=== PATIENT | male | born 2000 | race Caucasian/White ===

== ENCOUNTER 2025-01-07 18:37 | Emergency (ER) | payer SELFPAY ==
[2025-01-07] MEDS: Ketorolac 30 MG/ML SDV IVPUSH ONE (20:34)
[2025-01-07] MEDS: Sodium Chloride 0.9% 1,000 ML IV ONE (20:34)
[2025-01-07] MEDS: diphenhydrAMINE 50 MG/ML SDV IVPUSH ONE (20:36)
[2025-01-07] MEDS: Ondansetron 4 MG/2 ML SDV IVPUSH ONE (20:37)
[2025-01-07] MEDS: Ondansetron 4 MG Tab PO ONE (20:49)
[2025-01-07] MEDS: diphenhydrAMINE 50 MG Cap PO ONE (20:49)
[2025-01-07 20:51] LABS: BASOPHILS ABSOLUTE AUTO 0.08 K/uL (0.00-0.20); BASOPHILS PERCENT AUTO 0.7 % (0.0-1.0); EOSINOPHILS ABSOLUTE AUTO 0.27 K/uL (0.00-0.45); EOSINOPHILS PERCENT AUTO 2.2 % (0.0-6.0); HEMATOCRIT 47.9 % (42.0-52.0); HEMOGLOBIN 16.9 g/dL (14.0-18.0); IMMATURE GRAN ABSOLUTE AUTO 0.06 K/uL (0.00-0.05); IMMATURE GRAN PERCENT AUTO 0.5 % (0.0-0.4); LYMPHOCYTES ABSOLUTE AUTO 3.45 K/uL (1.00-4.80); LYMPHOCYTES PERCENT AUTO 28.2 % (24.0-44.0); MEAN CORPUSCULAR HEMOGLOBIN 29.3 pg (28.0-32.0); MEAN CORPUSCULAR HGB CONC 35.3 g/dL (32.0-36.0); MEAN CORPUSCULAR VOLUME 83.2 fL (83.0-99.0); MEAN PLATELET VOLUME 8.9 fL (9.4-12.4); MONOCYTES ABSOLUTE AUTO 0.69 K/uL (0.00-0.80); MONOCYTES PERCENT AUTO 5.6 % (0.0-8.0); NEUTROPHILS ABSOLUTE AUTO 7.69 K/uL (1.80-7.70); NEUTROPHILS PERCENT AUTO 62.8 % (41.0-71.0); PLATELET COUNT,PLT 307 K/uL (150-400); RED BLOOD CELL COUNT 5.76 M/uL (4.52-5.90); WHITE BLOOD CELL COUNT,WBC 12.24 K/uL (3.9-11.3)
[2025-01-07 21:17] LABS: BLOOD UREA NITROGEN,BUN 13 mg/dL (7.0-18.0); CALCIUM 8.8 mg/dL (8.5-10.1); CARBON DIOXIDE,CO2 30.2 mmol/L (21.0-32.0); CHLORIDE,CL 101 mmol/L (98-107); CREATININE 1.2 mg/dL (0.8-1.3); GLUCOSE RANDOM 84 mg/dL (74-106); POTASSIUM,K 3.9 mmol/L (3.5-5.1); SODIUM,NA 138 mmol/L (136-148)
[2025-01-07 21:24] LABS: ESTIMATED GFR 86 mL/min (>60)
[2025-01-07 21:28] LABS: CORONAVIRUS COVID-19 NAA NEGATIVE (NEGATIVE); INFLUENZA A NAA NEGATIVE (NEGATIVE); INFLUENZA B NAA NEGATIVE (NEGATIVE)
== END 2025-01-07 23:32 | disposition home or self-care (01) ==
LOC: MW.ED 18:37
DX: G44.209 Tension-type headache, unspecified, not intractable (principal); R00.2 Palpitations
CPT/HCPCS: 0240U; 36415; 80048; 84484; 85025; 93005; 96361; 96374; 96375; 99285; J1200; J1885; J2405; J7030; 99283

== ENCOUNTER 2025-02-22 14:49 | Emergency (ER) | payer BC ==
[2025-02-22 15:06] LABS: BASOPHILS ABSOLUTE AUTO 0.11 K/uL (0.00-0.20); BASOPHILS PERCENT AUTO 0.8 % (0.0-1.0); EOSINOPHILS ABSOLUTE AUTO 0.12 K/uL (0.00-0.45); EOSINOPHILS PERCENT AUTO 0.8 % (0.0-6.0); IMMATURE GRAN ABSOLUTE AUTO 0.10 K/uL (0.00-0.05); IMMATURE GRAN PERCENT AUTO 0.7 % (0.0-0.4); LYMPHOCYTES ABSOLUTE AUTO 2.94 K/uL (1.00-4.80); LYMPHOCYTES PERCENT AUTO 20.6 % (24.0-44.0); MEAN PLATELET VOLUME 8.6 fL (9.4-12.4); MONOCYTES ABSOLUTE AUTO 0.88 K/uL (0.00-0.80); MONOCYTES PERCENT AUTO 6.2 % (0.0-8.0); NEUTROPHILS ABSOLUTE AUTO 10.15 K/uL (1.80-7.70); NEUTROPHILS PERCENT AUTO 70.9 % (41.0-71.0); NRBC ABSOLUTE 0.00 K/uL (0.00-0.02); NRBC PERCENT 0.0 /100WBC (0.0-0.2); PLATELET COUNT,PLT 328 K/uL (150-400); RED BLOOD CELL COUNT 5.92 M/uL (4.52-5.90); WHITE BLOOD CELL COUNT,WBC 14.30 K/uL (3.9-11.3)
[2025-02-22 15:52] LABS: A/G RATIO 1.4 (0.9-1.6); ALANINE AMINOTRANSFERASE,ALT 39.0 IU/L (14-63); ASPARTATE AMNIOTRANSFERASE,AST 13.0 IU/L (15-37); BILIRUBIN TOTAL 0.7 mg/dL (0.2-1.0); BLOOD UREA NITROGEN,BUN 7.0 mg/dL (7.0-18.0); CARBON DIOXIDE,CO2 27.9 mmol/L (21.0-32.0); CHLORIDE,CL 102.0 mmol/L (98-107); CREATININE 1.1 mg/dL (0.8-1.3); EST CRCL DRUG DOSING (CG) 95.14 mL/min; GLUCOSE RANDOM 92.0 mg/dL (74-106); POTASSIUM,K 3.8 mmol/L (3.5-5.1); PROTEIN TOTAL,TP 7.7 g/dL (6.4-8.2); SODIUM,NA 141.0 mmol/L (136-148)
[2025-02-22 15:55] LABS: ESTIMATED GFR 95.0 mL/min (>60)
[2025-02-22 16:21] LABS: CREATINE KINASE,CK 96 U/L (26-308)
[2025-02-22] MEDS: Alum Hydrox/Mag Hydrox/Simeth 15 ML, Lidocaine 2% 5 ML PO ONE (16:58)
[2025-02-22 17:19] LABS: APPEARANCE,URINE CLEAR; GLUCOSE,URINE NEGATIVE (NEGATIVE); OCCULT BLOOD,URINE TRACE-INTACT (NEGATIVE)
[2025-02-22 17:30] LABS: AMPHETAMINES SCREEN, URINE NEGATIVE (CUTOFF=500); BUPRENORPHINE SCREEN,URINE NEGATIVE (CUTOFF=10); METHADONE SCREEN, URINE NEGATIVE (CUTOFF=200); METHAMPHETAMINES SCREEN, URINE NEGATIVE (CUTOFF=500); OXYCODONE SCREEN,URINE NEGATIVE (CUT0FF=100); PCP SCREEN,URINE NEGATIVE (CUTOFF=25); THC SCREEN,URINE 20 NG/ML NEGATIVE (CUTOFF=50)
[2025-02-22] MEDS: hydrALAZINE 20 MG/ML SDV IVPUSH ONE (17:30)
[2025-02-22 17:32] LABS: EPITHELIAL CELLS,URINE RARE (NONE-FEW)
== END 2025-02-22 19:28 | disposition home or self-care (01) ==
LOC: MW.ED 14:49
DX: R07.89 Other chest pain (principal)
CPT/HCPCS: 36415; 71046; 80053; 80305; 81001; 82550; 84484; 85025; 99285; A9270; 99283